=== PATIENT | female | born 1995 | race Caucasian/White ===

== ENCOUNTER 2016-10-31 15:13 | Emergency (ER) | payer MEDICAID, OTHER ==
[2016-10-31 15:19] VITALS: BP 140/84; PULSE 92; RESP 16; TEMP 98
--- NOTE | 2016-10-31 15:46 | ED ---
ENT HPI - General Chief complaint: Dental/Oral Stated complaint: Dental Pain Time Seen by Provider: 10/31/16 15:29 Source: patient, RN notes reviewed Mode of arrival: ambulatory Limitations: no limitations - History of Present Illness Initial comments: This is a 21-year-old female who presents emergency department complaining of left upper tooth pain. She is complaining of pain to tooth #11. Patient states that she was here in March 2016 for the same thing. Patient states that she had up with a dental infection at that time but never had the tooth pulled. She states she is now 34 weeks . Patient states she believes same thing is starting again. However she denies any difficulty swallowing. She denies any airway process. She denies any fever or chills. She is getting some pain and tenderness to the tooth area. There is no drainage. No neck pain. No neck stiffness. No shortness breath or chest pain. No abdominal pain. No vaginal bleeding. Patient denies any problems with . Patient has no ALLERGIES. Patient has no shortness of breath. Patient has no difficult swallowing. Patient has no ear pain. MD complaint: tooth pain - Related Data Previous Rx's Medication Instructions Recorded HYDROcodone/APAP 5-325MG [Porter 1 - 2 tab PO Q4H PRN #12 tab 03/10/16 5-325] Ibuprofen [Motrin] 800 mg PO Q8HR PRN #20 tab 03/10/16 Clindamycin [Cleocin] 300 mg PO Q6H #56 capsule 03/21/16 Amoxic-Pot Clav 875-125Mg 1 tab PO Q12HR #20 tablet 03/22/16 [Augmentin 875-125] HYDROmorphone [Dilaudid] 2 mg PO Q6H PRN #12 tab 03/22/16 Penicillin V Potassium [Pen Vee K] 500 mg PO QID #40 tab 10/31/16 Allergies Allergy/AdvReac Type Severity Reaction Status Date / Time No Known Allergies Allergy Verified 03/22/16 08:16 Review of Systems ROS Statement: Those systems with pertinent positive or pertinent negative responses have been documented in the HPI. ROS Other: All systems not noted in ROS Statement are negative. Past Medical History Past Medical History: No Reported History History of Any Multi-Drug Resistant Organisms: None Reported Past Surgical History: Tonsillectomy Past Psychological History: No Psychological Hx Reported Smoking Status: Never smoker Past Alcohol Use History: None Reported Past Drug Use History: None Reported General Exam - General Exam Comments Initial Comments: Well-developed, well-nourished 21-year-old female in no distress Limitations: no limitations General appearance: alert, in no apparent distress Head exam: Present: atraumatic, normocephalic, normal inspection Eye exam: Present: normal appearance, EOMI. Absent: scleral icterus, conjunctival injection, periorbital swelling ENT exam: Present: normal exam, normal oropharynx, mucous membranes moist, TM's normal bilaterally, normal external ear exam, other (Patient has mild erythema adjacent tooth #11. There is a dental carry to this area. There is no evidence of drainable dental abscess this time. No evidence of peritonsillar abscess. No evidence of tonsillar adenopathy or exudate.) Neck exam: Present: normal inspection, full ROM. Absent: tenderness, meningismus, lymphadenopathy Respiratory exam: Present: normal lung sounds bilaterally. Absent: respiratory distress, wheezes, rales, rhonchi, stridor Cardiovascular Exam: Present: regular rate, normal rhythm, normal heart sounds. Absent: systolic murmur, diastolic murmur, rubs, gallop, clicks GI/Abdominal exam: Present: soft. Absent: distended, tenderness Extremities exam: Present: normal inspection, full ROM, normal capillary refill. Absent: tenderness, pedal edema, joint swelling, calf tenderness Back exam: Present: normal inspection Neurological exam: Present: alert, oriented X3, CN II-XII intact Psychiatric exam: Present: normal affect, normal mood Skin exam: Present: warm, dry, intact, normal color. Absent: rash Course Vital Signs 10/31/16 15:17 Temperature 98.0 F Pulse Rate 92 Respiratory 16 Rate Blood Pressure 140/84 O2 Sat by Pulse 100 Oximetry Medical Decision Making - Medical Decision Making Return to the ER at once if the symptoms worsen or problems or difficulties arise. Follow-up with the dentist as soon as possible for reevaluation. Again , return to the ER at anytime if any symptomology worsens. Return parameters discussed Disposition Clinical Impression: Infected dental caries Disposition: HOME SELF-CARE Condition: Good Instructions: Dental Caries (ED) Additional Instructions: Follow-up with the [facility] [place] [address]. The phone number is [phone] (existing clients), ( new clients). The first consultation is $50 which includes x-rays. Usually costs 30% less than private dentist for subsequent visits. Return to the ER at once if the symptoms worsen or problems or difficulties arise. Take all medications as directed. Use [id number] acetaminophen 500 mg every 6 hours as needed for pain control. Prescriptions: Penicillin V Potassium [Pen Vee K] 500 mg PO QID #40 tab Referrals: Angela Nunez MD [Primary Care Provider] - 1-2 days Time of Disposition: 15:40
== END 2016-10-31 15:59 | disposition home or self-care (01) ==
LOC: EC 15:13
DX: O99.613 Diseases of the digestive system complicating pregnancy, third trimester (principal); K02.9 Dental caries, unspecified; Z3A.34 34 weeks gestation of pregnancy
CPT/HCPCS: 99282